=== PATIENT | male | born 1995 | race Caucasian/White ===

== ENCOUNTER 2023-04-02 20:23 | Emergency (ER) | payer MEDICAID, SELFPAY ==
[2023-04-02 20:24] VITALS: BP 135/86; PULSE 137; RESP 18; TEMP 36.6; O2SAT 99; BMI 25.8
--- NOTE | 2023-04-02 21:27 | ED.RN ---
PT LEFT WITHOUT BEING SEEN
== END 2023-04-02 21:24 | disposition left against medical advice (07) ==
DX: K08.9 Disorder of teeth and supporting structures, unspecified (principal)